=== PATIENT | female | born 1955 ===

== ENCOUNTER 2021-11-15 12:43 | Emergency (ER) | payer OTHER, BC | END 2021-11-15 15:20 | disposition home or self-care (01) | LOC: MW.ED 12:43 | DX: S52.501A Unspecified fracture of the lower end of right radius, initial encounter for closed fracture (principal); I10 Essential (primary) hypertension; Z86.16 Personal history of COVID-19; W01.0XXA Fall on same level from slipping, tripping and stumbling without subsequent striking against object, initial encounter | CPT/HCPCS: 29125; 73110-26-LT; 73110-LT; 99283; 99283-25 ==